=== PATIENT | male | born 1980 | race Hispanic/Latino ===

== ENCOUNTER 2018-07-20 00:14 | Emergency (ER) | payer SELFPAY ==
[2018-07-20 00:35] LABS: Bilirubin Small (Negative); Blood, Urine Trace (Negative); Clarity Slightly Cloudy (Clear); Glucose, Urine (Dipstick) Negative (Negative); Leukocyte Small (Negative); Nitrite Negative (Negative); Protein, Urine (Dipstick) 30 mg/dL (Neg-Trace)
[2018-07-20 00:42] LABS: Specific Gravity, Urine 1.031 (1.002-1.036)
[2018-07-20 00:43] LABS: Bacteria/HPF 1+ HPF (None Seen); Squamous Epithelial 0-3 HPF (0-3)
[2018-07-20] MEDS ORDERED: Ondansetron ODT 4 MG TAB ONE (00:54)
[2018-07-20] MEDS ORDERED: Lidocaine 1% (PF) 30 ML VIAL ONE (00:54)
[2018-07-20] MEDS ORDERED: Azithromycin 250 MG TAB ONE (00:54)
[2018-07-20] MEDS ORDERED: cefTRIAXone\\ROCEPHIN 500 MG VIAL ONE (00:54)
[2018-07-20 19:44] LABS: Chlamydia by PCR Not Detected (NotDetected); GC by PCR DETECTED (NotDetected)
== END 2018-07-20 01:22 | disposition home or self-care (01) ==
LOC: NAV ERS 00:14
DX: N34.1 Nonspecific urethritis (principal); F17.210 Nicotine dependence, cigarettes, uncomplicated
CPT/HCPCS: 81003; 81015; 87086; 87491; 87591; 96372; J0696; J2001; Q0162